=== PATIENT | female | born 1990 | race Caucasian/White ===

== ENCOUNTER → 2018-09-09 | Outpatient (CLI) | payer OTHER | LOC: CAT 12:16 | DX: N13.2 Hydronephrosis with renal and ureteral calculous obstruction (principal); Z68.23 Body mass index [BMI] 23.0-23.9, adult ==

== ENCOUNTER → 2018-12-28 | Outpatient (CLI) | payer OTHER | LOC: ULTRA 08:01 | DX: R10.11 Right upper quadrant pain (principal) ==